=== PATIENT | female | born 1950 | race Caucasian/White ===

== ENCOUNTER → 2019-07-12 12:51 | Outpatient (CLI) | payer MEDICARE, SELFPAY ==
[2019-07-12 12:28] VITALS: BMI 38.2
--- NOTE | 2019-07-12 12:52 | RAD_ITS ---
STUDY: X-RAY - LEFT HAND REASON FOR EXAM: Female, 69 years old. Pain TECHNIQUE: 3 view(s) of the hand. COMPARISON: None. FINDINGS: Normal radiocarpal articulation. Normal distal radioulnar joint. Mild erosion or resorption at the tip of the ulnar styloid. Normal visualized carpal bones. Normal carpal articulations Moderate degenerative changes at the carpometacarpal articulation of the thumb with deformed trapezium. Normal second through fifth carpometacarpal joints. Questionable old fracture of the base of the fifth metacarpus. Normal metacarpophalangeal joint of the thumb. Normal interphalangeal joint of the thumb. Normal proximal and distal phalanges of the thumb. Normal metacarpophalangeal joints of the second through fifth fingers. Degenerative spurring at the proximal and distal interphalangeal joints of the second through fifth fingers. Soft tissue prominence at the proximal interphalangeal joints of the second through fourth digits possibly related to rheumatoid arthritis. Normal phalanges of the second through fifth fingers. The soft tissue structures are unremarkable. RAD/Hand Min 3 Views IMPRESSION: No acute bony injury of the hand. Degenerative and possible rheumatoid changes as noted. Electronically Signed: Hiram Rios DO at 21:40 EST Tel [phone], Service support ,
== END ==
PROVIDERS: Family Provider Internal Medicine; PCP Internal Medicine; Referring Provider Physician Assistant; Visit Provider Physician Assistant
DX: M79.642 Pain in left hand (principal)
CPT/HCPCS: 73130